=== PATIENT | female | born 1970 | race Caucasian/White ===

== ENCOUNTER 2019-08-10 19:48 | Emergency (ER) | payer OTHER ==
[~2019-08-10] VITALS: Ht 165.1 cm; Wt 115.7 kg
[2019-08-10 19:50] VITALS: BP 113/74
[2019-08-10] MEDS ORDERED: LEVO-T25 MCG PO (19:59)
[2019-08-10] MEDS ORDERED: MEDROLDOSEPACK PO (20:18)
[2019-08-10] MEDS ORDERED: CIPRODEX OTIC7.5 ML OTIC (20:18)
[2019-08-10] MEDS ORDERED: NORCO 5-325 TA1 EAC1 PO (20:18)
== END 2019-08-10 20:30 | disposition home or self-care (01) ==
LOC: ER 19:48
DX: M54.41 Lumbago with sciatica, right side (principal); H60.93 Unspecified otitis externa, bilateral; F17.210 Nicotine dependence, cigarettes, uncomplicated; Z88.0 Allergy status to penicillin; Z88.8 Allergy status to other drugs, medicaments and biological substances